=== PATIENT | female | born 2000 | race Caucasian/White ===

== ENCOUNTER 2020-03-02 21:52 | Emergency (ER) | payer BC, OTHER ==
[2020-03-03 14:09] LABS: SARS-CoV-2 MS2 Positive
[2020-03-03 14:10] LABS: SARS-CoV-2 by NAA DETECTED (NotDetected)
[2020-03-03 14:11] LABS: SARS-CoV-2 N Gene Positive; SARS-CoV-2 S Gene Positive; SARS-CoV-2 orf1ab Positive
== END 2020-03-02 22:40 | disposition home or self-care (01) ==
LOC: ERS 21:52
DX: U07.1 COVID-19 (principal)
CPT/HCPCS: 87635; 99283; U0003

== ENCOUNTER 2020-04-20 05:30 | Inpatient (IN) | payer BC, OTHER ==
[2020-04-20] MEDS: Lactated Ringer's 1,000 ML IV SCH ×2 (07:00→14:00)
[2020-04-20 09:24] LABS: Syphilis Antibody Nonreactive (Nonreactive); Syphilis Antibody Index 0.02 S/CO (<1.00 Non-Reactive)
[2020-04-20 09:27] LABS: HBSAg Index 0.12 S/CO (0-0.99); Hep B Surf Ag Non-Reactive S/CO (NonReactive)
[2020-04-20] MEDS ORDERED: hydrALAZINE 20 MG/ML VIAL SLOW IVP PRN ×2 (09:33→22:58)
[2020-04-20] MEDS ORDERED: NS w/ Oxytocin 10 units 500 ML IV SCH (09:33)
[2020-04-20] MEDS ORDERED: Butorphanol Tartrate 1 MG/ML VIAL SLOW IVP PRN (09:33)
[2020-04-20] MEDS ORDERED: Promethazine HCl 25 MG/ML VIAL IM PRN ×3 (09:33→22:58)
[2020-04-20] MEDS ORDERED: NS / Oxytocin 40 units/1000ml 1,000 ML IV PRN (09:33)
[2020-04-20] MEDS ORDERED: HYDROcodone/Acetaminophen 5/325 mg Tablet PO PRN ×4 (09:33→22:58)
[2020-04-20] MEDS ORDERED: Lidocaine 1% (PF) 30 ML VIAL SC PRN (09:33)
[2020-04-20] MEDS ORDERED: Lactated Ringer's 1,000 ML IV SCH (09:33)
[2020-04-20] MEDS ORDERED: Zolpidem Tartrate 5 MG TAB PO PRN (09:33)
[2020-04-20] MEDS ORDERED: Ondansetron PF 4 MG/2 ML Vial IVP PRN ×3 (09:33→22:58)
[2020-04-20] MEDS ORDERED: Ibuprofen 800 MG TAB PO PRN (09:33)
[2020-04-20] MEDS ORDERED: Fentanyl 4 mcg/Bup 0.1% Cadd 100 ML ONE ×2 (09:41→16:38)
[2020-04-20] MEDS ORDERED: Bupivacaine 0.25% HCL 30 ML VIAL ONE (09:52)
[2020-04-20] MEDS ORDERED: Naloxone HCl 0.4 mg/ml Vial IVP PRN ×2 (10:18)
[2020-04-20] MEDS ORDERED: diphenhydrAMINE 50 MG/ML VIAL IVP PRN (10:18)
[2020-04-20] MEDS ORDERED: EPHEDRINE 25 MG/5 ML SYRINGE SLOW IVP PRN (10:18)
[2020-04-20] MEDS ORDERED: Lactated Ringer's 500 ML IV PRN (10:18)
[2020-04-20] MEDS ORDERED: Acetaminophen 325 MG TAB PO PRN (10:18)
[2020-04-20] MEDS ORDERED: Communication Order-Pharmacy FS SCH (10:30)
[2020-04-20] MEDS ORDERED: Fentanyl 4 mcg/Bupivacaine 0.1% Cassette 100 ML EPIDURAL SCH (10:30)
[2020-04-20 11:36] LABS: Hemoglobin 9.8 g/dL (12.0-16.0); Mean Corpuscular Hemoglobin 25.3 pg (27.0-31.0); Mean Corpuscular Volume 79.2 fL (78.0-98.0); Mean Platelet Volume 8.6 fL (7.4-10.4); Platelet Count 234 thou/uL (130-400); RBC Distribution Width 14.2 % (11.5-14.5); Red Blood Cell (RBC) Count 3.87 mill/uL (4.20-5.40); White Blood Cell (WBC) Count 13.1 thou/uL (4.8-10.8)
[2020-04-20 19:03] LABS: Base Excess (BEa) -5.2 mEq/L (-2.0 to +3.0)
[2020-04-20 19:09] LABS: Actual Bicarbonate (HCO3v) 22 mEq/L (22-28); Base Excess -4.1 mEq/L (-2.0 to +3.0); pH (Cord, venous) 7.31 (7.32-7.43)
--- NOTE | 2020-04-20 20:14 | OP ---
DATE OF PROCEDURE: 04/20/2020 TIME OF SERVICE: Approximately 1835 hours. PREOPERATIVE DIAGNOSIS: Maternal exhaustion approximately 1.5 hours of pushing at complete, complete, +3 left occiput anterior station. POSTOPERATIVE DIAGNOSES: Maternal exhaustion approximately 1.5 hours of pushing at complete, complete, +3 left occiput anterior station plus mild shoulder dystocia. PROCEDURES PERFORMED: Outlet vacuum extraction with second-degree episiotomy, and mild shoulder dystocia resolved with Alyssa maneuver. ANESTHESIA: Epidural. Pending. APGARS: Pending. FINDINGS: 1. Vigorous female infant, Apgars and weight are pending. Moving both upper extremities equally with nuchal cord x1 to Nursery. 2. Vacuum delivery with two pop-offs over approximately four contractions and approximately 120 seconds green zone vacuum. 3. Second-degree episiotomy without significant other laceration, repaired with 2-0 chromic. 4. Hemostasis and correct counts at the end of the procedure. DISPOSITION: Routine recovery. DESCRIPTION OF PROCEDURE: The patient was induced for post term. She proceeded to complete, complete, and +1 to +2 station over hour and a half of pushing. She has tended to +3 to +4 station FABIANA with empty bladder and maternal exhaustion. We discussed the indications for vacuum delivery and vacuum was applied over each of 4 contractions. It was taken to green for approximately 30 to 40 seconds per contraction. There were two pop-offs early on with a vacuum provision device that was not holding vacuum. It was changed out for another one, which worked well. The delivered and rotated, restituted from FABIANA to LOT. Nuchal cord was noted. Mild shoulder dystocia was noted. A second-degree episiotomy was cut right medial-lateral by the attending physician. With appropriate general traction and Alyssa maneuver, the anterior shoulder was delivered, then the posterior shoulder and rest of the infant delivered and was placed on maternal abdomen. Nursery was in attendance. The cord was clamped and cut, and handed off to nursery nurse in attendance. Cord blood sample was obtained after getting a segment for cord gas, which was sent. Placenta was delivered spontaneously within 5 minutes. Inspection revealed there to be a second-degree episiotomy right medial-lateral with small anterior sulcus laceration on the left. These were both repaired using 2-0 chromic in the usual technique. Good hemostasis was noted afterwards. Inspection revealed no other lacerations. Counts were correct. The patient was entered into routine care. Weight and Apgars were pending on the infant. Job ID: [id number]
[2020-04-20 21:25] LABS: SARS-CoV-2 NAA Rapid Test DETECTED (NotDetected)
[2020-04-20] MEDS ORDERED: Milk Of Magnesia 30 ML UDCUP PO PRN (22:58)
[2020-04-20] MEDS ORDERED: diphenhydrAMINE 25 MG CAP PO PRN (22:58)
[2020-04-20] MEDS ORDERED: Benzocaine-Menthol 82.5 ML CAN TOP PRN (22:58)
[2020-04-20] MEDS ORDERED: Bisacodyl 10 MG SUPP PR PRN (22:58)
[2020-04-20] MEDS ORDERED: Preparation H Ointment 28 GM TUBE PR PRN (22:58)
[2020-04-20] MEDS ORDERED: NS / Oxytocin 40 units/1000ml 1,000 ML IV SCH (22:58)
[2020-04-20] MEDS ORDERED: Ibuprofen 800 MG TAB PO SCH (23:15)
[2020-04-20] MEDS ORDERED: Docusate Calcium (SURFAK) 240 MG CAP PO SCH (23:15)
[2020-04-21] MEDS: Ibuprofen 800 MG TAB PO SCH ×3 (03:48→22:14)
[2020-04-21] MEDS ORDERED: Ibuprofen 800 MG TAB PO SCH (06:00)
[2020-04-21] MEDS: Docusate Calcium (SURFAK) 240 MG CAP PO SCH ×2 (08:29→22:14)
[2020-04-21] MEDS ORDERED: Varicella virus, LIVE 0.5 ML VIAL SC ONE (09:00)
[2020-04-21] MEDS ORDERED: Measles/Mumps/Rubella 10 MCG/0.5 ML VIAL SC ONE (09:00)
[2020-04-21] MEDS ORDERED: Adacel (T-DAP) 0.5 ML SYRINGE IM ONE (09:00)
[2020-04-21] MEDS: Ferrous Sulfate 325 MG TAB PO SCH ×2 (09:04→12:23)
[2020-04-22] MEDS: Ibuprofen 800 MG TAB PO SCH ×2 (06:17→13:37)
[2020-04-22 07:47] VITALS: BP 115/52; TEMP 97.9
[2020-04-22] MEDS: Ferrous Sulfate 325 MG TAB PO SCH (09:38)
[2020-04-22] MEDS: Docusate Calcium (SURFAK) 240 MG CAP PO SCH (09:38)
--- NOTE | 2020-04-25 07:46 | PQF ---
CLINICAL DOCUMENTATION CLARIFICATION FORM: Dear : Pascual Garcia Date / Time: 04/25/2020 07:45 Please exercise your independent, professional judgment in responding to the clarification form. Clinical indicators are provided on the bottom of this form for your review COVID 19 Clarification and Manifestations: Please check appropriate box(es): A. COVID 19 virus diagnosis Validation: [ ] COVID-19 is ruled in (if so, please provide the evidence used to support this diagnosis) [ ] COVID-19 has been ruled out [ xx ] Other explanation of clinical findings _patient had covid in february and is now recovered [ ] Unable to determine Physician Signature: Date/Time: For continuity of documentation, please document condition throughout progress notes and discharge summary. Thank You. To be completed by CDI/Coding staff for physician review: Present Clinical Indicators - Signs / Symptoms / Labs Results and Location in Medical Record [x] SARS-COV: detected Labs 04/20 [x] Covid positive 02/2020 [facility] labor and delivery [x] WBC: 04/20=13.1 Labs 04/20 [x] Temp=97.9 Pulse=79 Respi=18 UC=013/68 Vital signs 04/20 Present Risk Factors Results and Location in Medical Record [x] 40 weeks gestation OP Note 04/20 [x] s/p vacuum delivery OP Note 04/20 Present Treatments Results and Location in Medical Record [x] Laboratory Monitoring Labs 04/20 [x] IVF MAR 04/20 CDS/Ux Developer Signature: Ezra Mcgowan Phone #: [phone] Date/Time: 04/25/2020 07:45 This is a permanent part of the Medical Record [facility]
== END 2020-04-22 15:55 | disposition home or self-care (01) | DRG 807 ==
LOC: L&D 09:33 → 3SW 23:17
PROVIDERS: ADMIT Obstetrics & Gynecology; ATTEND Obstetrics & Gynecology
PROC: 10D07Z6 Extraction of Products of Conception, Vacuum, Via Natural or Artificial Opening (ICD-10-PCS; principal; 2020-04-21)
PROC: 0W8NXZZ Division of Female Perineum, External Approach (ICD-10-PCS; 2020-04-21)
DX: O48.0 Post-term pregnancy (principal); Z37.0 Single live birth; Z3A.40 40 weeks gestation of pregnancy; O66.0 Obstructed labor due to shoulder dystocia; O69.81X0 Labor and delivery complicated by cord around neck, without compression, not applicable or unspecified; O75.81 Maternal exhaustion complicating labor and delivery
CPT/HCPCS: 51702; 82805; 85027; 86780; 86850; 86900; 86901; 87340; S0020; U0002

== ENCOUNTER 2022-07-16 16:16 | Emergency (ER) | payer BC, OTHER | END 2022-07-16 17:53 | disposition home or self-care (01) | LOC: ERS 16:16 | DX: H66.93 Otitis media, unspecified, bilateral (principal); J02.9 Acute pharyngitis, unspecified | CPT/HCPCS: 99283 ==